=== PATIENT | male | born 1950 | race Caucasian/White ===

== ENCOUNTER 2023-12-18 09:58 | Emergency (ER) | payer OTHER ==
[~2023-12-18] VITALS: Ht 177.8 cm; Wt 81.4 kg
[~2023-12-18 09:58] MED LIST: ALBUTEROL2.5 MG/3 M INH; AMOX TR-K CLV1 EACH PO; DULERA 200 MCG/13 GM INH; IBU400 MG PO; METHYLPREDNISOLO4 M1 PO; NORVASC10 MG PO; SPIRIVA18 MCG INH; VENTOLIN HFA18 GM INH
[2023-12-18] MEDS ORDERED: SYMBICORT 16010.2 GM INH (10:17)
[2023-12-18 10:58] LABS: BASOPHILS 1.7 % (0-2); EOSINOPHILS 4.8 % (0-6); HEMATOCRIT 25.9 % (35.0-50.0); HEMOGLOBIN 7.9 g/dL (12.0-18.0); LYMPHOCYTES 17.2 % (24-44); MCH 22.6 (27-36); MCHC 30.5 g/dl (30-36); MCV 74.3 fl (81-99); MONOCYTES 6.9 % (0-12); NEUTROPHILS 69.4 % (39-80); PLATELET COUNT 582 K/uL (140-440); RBC 3.48 M/ul (4.3-5.7); RDW 24.3 (10.5-15.0)
[2023-12-18] MEDS ORDERED: HYDROCODONE/ACETA 5/325 TAB PO ONE (11:15)
[2023-12-18 11:20] LABS: ALBUMIN/GLOBULIN RATIO 0.97 (1.1-2.4); ANION GAP 11.8 (7-21); BILIRUBIN, TOTAL 0.5 ng/dL (0.2-1.0); BUN/CREATININE RATIO 11.81 (6.0-28.6); CALCIUM 8.2 mg/dL (8.5-10.1); CREATININE, SERUM 1.1 mg/dL (0.70-1.30); MAGNESIUM 2.4 mg/dL (1.8-2.4); POTASSIUM 3.8 mmol/L (3.5-5.1); PROTEIN, TOTAL 6.1 g/dL (6.4-8.2)
[2023-12-18] MEDS ORDERED: FUROSEMIDE 40 MG/4 ML VIAL IV ONE (12:15)
[2023-12-18] MEDS ORDERED: MONTELUKAST SOD10 MG PO (12:40)
[2023-12-18] MEDS ORDERED: IPRAT-ALBUT 0.5-3 ML INH (12:41)
[2023-12-18] MEDS ORDERED: MORPHINE SULFATE 4 MG/ML VIAL IV ONE (16:00)
[2023-12-18] MEDS ORDERED: PANTOPRAZOLE SODIUM 40 MG/10 ML VIAL IV ONE (19:30)
[2023-12-18 20:19] LABS: ABO O; RH POSITIVE
[2023-12-18 20:20] LABS: ANTIBODY SCREEN NEGATIVE
[2023-12-18 20:21] LABS: IS CROSSMATCH COMPATIBLE
[2023-12-18 20:35] VITALS: BP 153/74
[2023-12-19 10:38] LABS: RBC, LEUKOREDUCED 18212406684600F
[2023-12-19 14:24] LABS: IRON BINDING CAPACITY TOTAL 275 ug/dL (240-450); IRON,SERUM OR PLASMA 15 ug/dL (45-182); TRANSFERRIN SATURATION 5 %sat (20-50)
--- NOTE | 2023-12-19 22:54 | EKG ---
[facility] [address] [place] [address] Signed Normal sinus rhythm Normal ECG When compared with ECG of 19-OCT-2023 17:43, QRS duration has decreased Criteria for Septal infarct are no longer present ST no longer depressed in Inferior leads Confirmed by Rui Canas MD () on 12/19/2023 10:54:12 PM Electronically Signed By: RUI CANAS MD 12/19/23 [id number] PATIENT NAME: KECIA FLETCHER Electrocardiogram DATE OF : 52 PHYSICIAN: RUI CANAS MD REPORT #: [id number] REPORT IS CONFIDENTIAL AND NOT TO BE RELEASED WITHOUT AUTHORIZATION
== END 2023-12-18 20:35 | disposition short-term general hospital (02) ==
LOC: ED 09:58
PROVIDERS: Emergency Medicine
DX: I73.9 Peripheral vascular disease, unspecified (principal); D64.9 Anemia, unspecified; R91.8 Other nonspecific abnormal finding of lung field; I11.0 Hypertensive heart disease with heart failure; I50.9 Heart failure, unspecified; J44.9 Chronic obstructive pulmonary disease, unspecified; I48.91 Unspecified atrial fibrillation; Z79.51 Long term (current) use of inhaled steroids; Z79.899 Other long term (current) drug therapy; Z98.890 Other specified postprocedural states
CPT/HCPCS: 36415; 36430; 71045; 71260; 75635; 80053; 83550; 83735; 83880; 84484; 85025; 85045; 85060; 85379; 86850; 86900; 86901; 86922; 93005; 93010; 96375; 99285-25; C9113; J1940; J2270; P9016; Q9967